=== PATIENT | female | born 1960 | race Hispanic/Latino ===

== ENCOUNTER 2017-04-28 12:46 | Outpatient (CLI) | payer BC ==
--- NOTE | 2017-04-28 14:29 | Mammography Report ---
Screening mammogram: Routine views again demonstrates the asymmetric increase in focal fibroglandular tissue in the upper-outer right breast. Comparison with prior exams dating back to 2013 demonstrates that this area of density appears slightly different on each exam and on compression imaging in 2016 there is no focal finding. The remainder of the breast pattern is that of intermediate fibroglandular density in a symmetric pattern also unchanged from prior studies. CAD used. Impression: Stable right breast asymmetry. Recommendation: Annual mammogram followup. BI-RADS CATEGORY: 2 = Benign ACR BI-RADS MAMMOGRAPHIC CODES: 0 = Needs additional imaging evaluation; 1 = Negative; 2 = Benign; 3 = Probably benign; 4 = Suspicious; 5 = Malignant; 6 = Known biopsy-proven malignancy COMMENT: 1. Dense breast tissue, i.e., adenosis, fibrocystic changes, etc., may obscure an underlying neoplasm. 2. Approximately 10% of cancers are not detected with mammography. 3. A negative mammography report should not delay biopsy if a clinically suspicious mass is present.
--- NOTE | 2017-04-30 08:54 | XRay Report ---
Left ankle 3 views: History: Clipping. Findings: The large spur identified the posterior superior calcaneum.. No bony or articular abnormality at talotibial joint and the subtalar joint. Impression: Large spur posterior superior calcaneum.
== END 2017-04-28 12:47 | disposition home or self-care (01) ==
LOC: SPVIMAG 12:46
PROVIDERS: ATTEND Internal Medicine
DX: Z12.31 Encounter for screening mammogram for malignant neoplasm of breast (principal); M77.32 Calcaneal spur, left foot
CPT/HCPCS: 73610; G0202; 77067

== ENCOUNTER 2019-01-29 12:56 | Outpatient (CLI) | payer BC, MEDICARE ==
--- NOTE | 2019-02-01 12:17 | Mammography Report ---
DIGITAL SCREENING MAMMOGRAM WITH CAD, 01/29/2019 INDICATION: Routine screening mammography. TECHNIQUE: Digital bilateral 2D mammography was obtained in the craniocaudal and mediolateral obliq ue projections. This examination was interpreted with the benefit of Computer-Aided Detection analysi s. COMPARISON: 04/28/2017 FINDINGS: Breast Density: There are scattered areas of fibroglandular density. There is no evidence of dominant mass, suspicious calcifications or architectural distortion in eithe r breast. Benign calcifications are noted in the posterior lateral left breast, unchanged. IMPRESSION: No evidence of malignancy. No significant interval change. BI-RADS Category 2: Benign. No mammographic evidence of malignancy. Recommend routine screening ma mmography in one year. A "normal" or negative report should not discourage follow up or biopsy of a clinically significant f inding. A written summary of these findings will be mailed to the patient. The patient will be entered into a mammography reporting system which will generate a reminder letter for the patient's next appointmen t at the appropriate interval. The [employer] recommends yearly mammograms starting at age 40 and continuing as l micheline as a woman is in good health. Breast MRI is recommended for women with an approximate 20-25% or greater lifetime risk of breast cancer, including women with a strong family history of breast or ova nasir cancer or who have been treated for Hodgkin's disease. Signer Name: Talita Ferguson MD Signed: 02/01/2019 12:13 PM Workstation Name: [id number]
== END 2019-01-29 12:57 | disposition home or self-care (01) ==
LOC: SPVWC 12:56
PROVIDERS: ATTEND Nurse Practitioner
DX: Z12.31 Encounter for screening mammogram for malignant neoplasm of breast (principal)
CPT/HCPCS: 77067

== ENCOUNTER 2020-07-13 12:39 | Outpatient (CLI) | payer BC, MEDICARE ==
--- NOTE | 2020-07-14 08:12 | Mammography Report ---
DIGITAL SCREENING MAMMOGRAM WITH CAD, 07/13/2020 CLINICAL INFORMATION / INDICATION: Routine screening mammography. SCREENING MAMMO TECHNIQUE: Digital bilateral 2D mammography was obtained in the craniocaudal and mediolateral obliqu e projections. This examination was interpreted with the benefit of Computer-Aided Detection analysis . COMPARISON: 01/29/2019 and 04/28/2017 FINDINGS: Breast Density: The breasts are heterogeneously dense, which may obscure small masses. No dominant mass, suspicious calcifications, or architectural distortion in either breast. Changing likely benign nodularity again seen in both breasts, but especially on the right. IMPRESSION: No mammographic evidence of malignancy. Follow up recommendation: Routine yearly BI-RADS Category 2: Benign. A "normal" or negative report should not discourage follow up or biopsy of a clinically significant f inding. A written summary of these findings will be mailed to the patient. The patient will be entered into a mammography reporting system which will generate a reminder letter for the patient's next appointmen t at the appropriate interval. The [employer] recommends yearly mammograms starting at age 40 and continuing as l micheline as a woman is in good health. Breast MRI is recommended for women with an approximate 20-25% or greater lifetime risk of breast cancer, including women with a strong family history of breast or ova nasir cancer or who have been treated for Hodgkin's disease. Signer Name: Connor Alvarez MD Signed: 07/14/2020 8:08 AM Workstation Name: [email or web address]
== END 2020-07-13 12:40 | disposition home or self-care (01) ==
LOC: SPVWC 12:39
PROVIDERS: ATTEND Internal Medicine
DX: Z12.31 Encounter for screening mammogram for malignant neoplasm of breast (principal)
CPT/HCPCS: 77067

== ENCOUNTER 2021-11-14 13:19 | Outpatient (CLI) | payer BC ==
--- NOTE | 2021-11-15 16:18 | Mammography Report ---
DIGITAL SCREENING MAMMOGRAM WITH CAD, 11/14/2021 CLINICAL INFORMATION / INDICATION: Routine screening mammography. SCREENING MAMMO TECHNIQUE: Digital bilateral 2D mammography was obtained in the craniocaudal and mediolateral obliqu e projections. This examination was interpreted with the benefit of Computer-Aided Detection analysis . COMPARISON: 07/13/2020, 01/29/2019, 04/28/2017 FINDINGS: Breast Density: The breasts are heterogeneously dense, which may obscure small masses. No dominant mass, suspicious calcifications, or architectural distortion in either breast. There is stable nodularity on the right. IMPRESSION: No mammographic evidence of malignancy. Follow up recommendation: Routine yearly screening mammogram. BI-RADS Category 2: BENIGN. A "normal" or negative report should not discourage follow up or biopsy of a clinically significant f inding. A written summary of these findings will be mailed to the patient. The patient will be entered into a mammography reporting system which will generate a reminder letter for the patient's next appointmen t at the appropriate interval. The [employer] recommends yearly mammograms starting at age 40 and continuing as l micheline as a woman is in good health. Breast MRI is recommended for women with an approximate 20-25% or greater lifetime risk of breast cancer, including women with a strong family history of breast or ova nasir cancer or who have been treated for Hodgkin's disease. Signer Name: Tobin Molina MD Signed: 11/15/2021 4:11 PM Workstation Name: [id number]
== END 2021-11-14 13:20 | disposition home or self-care (01) ==
LOC: SPVWC 13:19
PROVIDERS: ATTEND Internal Medicine
DX: Z12.31 Encounter for screening mammogram for malignant neoplasm of breast (principal)
CPT/HCPCS: 77067